=== PATIENT | female | born 1990 | race African-American/Black ===

== ENCOUNTER → 2016-12-18 | Outpatient (CLI) | payer OTHER ==
[2014-08-10 20:59] VITALS: BP 135/89
--- NOTE | 2016-12-19 08:23 | MRI ---
MRI lumbar spine without contrast Indication: Lower back pain. Technique: Multiplanar, multi sequence imaging of the lumbar spine without IV contrast administration . Findings: Lumbar spine alignment is normal. There is disk desiccation at L5-S1 otherwise the disc spa florentino are normal in signal and height. There is no localizing bone marrow signal abnormality; however, there is diffuse decreased T1 signal throughout the lumbar spine and sacrum. No prevertebral paraspin al soft tissue swelling or fluid collection. Conus has a normal termination. At T12-L1 unremarkable At L1-2 unremarkable. At L2-3 unremarkable At L3-4 unremarkable At L4-5 unremarkable. At L5-S1 very mild broad-based disc bulge and facet arthropathy causes mild neural foraminal and sten osis with milder moderate left and right sided neural foraminal narrowing. SI joints are normal. Impression: 1.Mild discogenic degenerative change and facet arthropathy causes mild spinal canal stenosis and mil d to moderate neural foraminal narrowing bilaterally at L5-S1. 2. Moderate decreased T1 signal throughout the lumbar spine and sacrum is most consistent with a bone marrow reconversion process with most likely etiologies including chronic anemia or smoking history. Clinical correlation with CBC and peripheral blood smear can be obtained for further characterizatio n as clinically warranted. There is no pathologic or localizing marrow signal abnormality within the lumbar spine or sacrum. Reported By:
--- NOTE | 2016-12-19 08:33 | MRI ---
HISTORY: Thoracic spine pain Study: MRI thoracic spine without contrast Comparison: None Technique: Multiplanar multi-sequence MRI of the thoracic spine was obtained with standard department al protocol. Findings: The thoracic spine demonstrates normal alignment. There is diffuse decreased bone marrow signal on T2 and T1 weighted sequences that can be seen with red marrow reconversion. Given the patient's age the findings may be physiologic. Reconversion can also be associated with smoking. No focal mass identif ied within the limitations of noncontrast technique. The surrounding soft tissues are within normal limits. Vertebral body heights are preserved. The disc spaces are normal. No spinal or foraminal sten osis identified. IMPRESSION: 1. No acute osseous abnormality identified. 2. No significant spinal or foraminal stenosis. Reported By:
== END ==
LOC: RAD 13:10
PROVIDERS: ATTEND Internal Medicine
DX: M54.5 Low back pain (principal); M54.6 Pain in thoracic spine
CPT/HCPCS: 72146; 72148

== ENCOUNTER 2017-06-22 14:12 | Emergency (ER) | payer OTHER, MEDICAID ==
[2017-06-22 14:19] VITALS: BP 155/101; BMI 30.5
--- NOTE | 2017-06-22 15:32 | DR.GENAD ---
HPI - PCP Primary Care Physician: venessa - HPI Comment HPI Comment: GETTING WORSE. - Complaint/Symptoms Chief Complaint Doctors Comments: LEFT SHOULDER PAIN THAT STARTED AFTER MOVING FURNITURE TIMES 3 DAYS. Chief Complaint:: left shoulder pain after moving beds - Nurses notes reviewed Nurses Notes Review: Yes - Source History Provided: Patient - Mode of Arrival Mode of Arrival: Ambulatory - Timing Onset of Chief Complaint: 06/19/17 Came on: Suddenly - Duration Duration: Constant Duration: Days - Severity Severity: Moderate PMH - PMH Past Medical History: Yes Past Medical History: Hypertension Past Surgical History: No - Family History History of Family Medical Conditions: Yes Family Medical History: Diabetes Mellitus, Hypertension - Social History Does patient currently use any type of tobacco product: No Have you used tobacco products in the last 12 months: No Type of Tobacco Use: None Does any household member use tobacco: No Alcohol Use: None Do you use any recreational Drugs:: No Lives With: Family Lives Where: Home - infectious screening In the last 2 months have you had wt loss of >10#?: NO Have you had fever, night sweats or hemotysis?: No Have you traveled outside the country in the last 6 months?: No Isolation: Standard ROS - Review of Systems Constitutional: No Symptoms Reported Eyes: No Symptoms Reported ENTM: No Symptoms Reported Respiratoy: No Symptoms Reported Cardiovascular: No Symptoms Reported Gastrointestinal/Abdominal: No Symptoms Reported Genitourinary: No Symptoms Reported Neurological: No Symptoms Reported Musculoskeletal: Left, Shoulder Integumentary: No Symptoms Reported Hematologic/Lymphatic: No Symptoms Reported Endocrine: No Symptoms Reported All Other Systems: Reviewed and Negative PE - Vital Signs Vitals: Temperature 98 F Pulse Rate 80 Respiratory Rate 18 Blood Pressure 155/101 O2 Sat by Pulse Oximetry 100 - General Limitations: No Limitations General Appearance: Alert - Head Head Exam: Normal Inspection - Eyes Eye exam: Normal Appearance - ENT ENT Exam: Normal External Ear Exam External Ear Exam: Normal External Inspection TM/Canal Exam: Bilateral Normal Nose Exam: Normal Nose Exam Mouth Exam: Normal Inspection Throat Exam: Normal Inspection - Neck Neck Exam: Trachea Midline - Chest Chest Inspection: Symmetric Chest Wall Rise - Respiratory Respiratory Exam: Normal Lung Sounds Bilat Respiratory Exam: Bilateral Clear to Auscultation - Cardiovascular Cardiovascular Exam: Regular Rate, Normal Rhythm, Normal Heart Sounds - Abdominal Exam Abdominal Exam: Normal Inspection - Extremities Extremities Exam: Tenderness (LEFT SHOULDER TENDER.). negative: Full ROM ( DECREASE ROM LT SHOULDER.) - Back Back Exam: Normal Inspection - Neurologic Neurological Exam: Alert, Oriented X3 - Psychiatric Psychiatric Exam: Normal Affect, Normal Mood - Skin Skin Exam: Normal Color MDM - Differential Diagnosis Differential Diagnosis: LEFT SHOULDER FRACTURE, SPRAIN, STRAIN OR CONTUSION. Course - Treatment Treatment: SEE ORDERS. - Education/Counseling Education/Counseling: Patient, Education Educated On: Treatment, Diagnosis, Needs for Follow Up ROR - XRAY XRAY Interpreted by: Radiologist XRAY Findings: REPORT DISCUSS WITH PATIENT. - Diagnosis Discharge Problem: Shoulder sprain Qualifiers: Encounter type: initial encounter Shoulder sprain type: unspecified sprain Laterality: left Qualified Code(s): S43.402A - Unspecified sprain of left shoulder joint, initial encounter - Discharge Plan Disposition: 01 HOME, SELF-CARE Condition: Stable Prescriptions: Cyclobenzaprine HCl [FLEXERIL 10 MG *] 10 mg PO TID #20 tab Ibuprofen [MOTRIN TAB 800 MG *] 800 mg PO Q8H PRN #30 tab PRN Reason: Pain/Inflammation - Follow ups/Referrals Follow ups/Referrals: Dimas Ontiveros [Primary Care Provider] - 3 days - Instructions Instructions: Shoulder Sprain Additional Instructions: RETURN TO ED IF WORSE.
--- NOTE | 2017-06-22 15:45 | RAD ---
Examination: Left shoulder, three views History: Pain after moving bed Findings: No fracture or dislocation. Joint spaces are unremarkable. The humeral head is in normal po sition. There is contour irregularity of the coracoid process which may be related to remote trauma. Impression: No acute findings left shoulder. Reported By:
[2017-06-22] MEDS ORDERED: TORADOL 60 MG VIAL IM ONE (16:37)
[2017-06-22] MEDS ORDERED: NORFLEX INJ IM ONE (16:37)
[2017-06-22] MEDS ORDERED: TORADOL 60 MG VIAL ONE (16:45)
[2017-06-22] MEDS ORDERED: NORFLEX INJ ONE (16:45)
== END 2017-06-22 16:56 | disposition home or self-care (01) ==
LOC: ER 14:23
DX: S43.402A Unspecified sprain of left shoulder joint, initial encounter (principal); X50.0XXA Overexertion from strenuous movement or load, initial encounter; Y92.9 Unspecified place or not applicable
CPT/HCPCS: 73030; 96372; 99282; 99283; J1885; J2360

== ENCOUNTER 2017-08-25 22:51 | Emergency (ER) | payer OTHER, MEDICAID ==
[2017-08-25 22:56] VITALS: BP 138/92; BMI 30.4
== END 2017-08-26 00:40 | disposition left against medical advice (07) ==
LOC: ER 23:02
DX: R10.84 Generalized abdominal pain (principal)
CPT/HCPCS: 99281